=== PATIENT | female | born 1945 | race Caucasian/White ===

== ENCOUNTER 2018-05-07 06:03 | Day surgery (SDC) | payer MEDICARE ==
[~2018-05-07] VITALS: Ht 157.5 cm; Wt 109.4 kg
[~2018-05-07 06:03] MED LIST: CHOL10002; FISH OIL 1,2001 EAC1 PO; Omeprazole20 M1
--- NOTE | 2018-05-07 13:39 | NUR ---
05/07/18 1339 Laina Best (Priscilla DELAYED ENTRY 0935: PT STS SUDDEN ONSET NAUSEA & PAIN OF 11/09. 0944: 50MCG FENTANYL IVP ADMINISTERED PER ORDERS 0945: 4MG ZOFRAN IVP ADMINISTERED PER ORDERS PT STS PAIN RESOLVED; NAUSEA UNEFFECTED BY ZOFRAN 0952: PT VOMITED 75ML INTO EMESIS BAG. ORDER CLARIFIED WITH PHYSICIAN. 1002: 25MG PHENERGAN ADMINISTERED PER ORDERS 1012: PT 02 SATS DROPPED BELOW 92%, 2L 02 APPLIED. 1025: PT VSS, 02 DISCONTINUED.
== END 2018-05-07 11:25 | disposition home or self-care (01) ==
LOC: ORSCSDS 06:03
PROVIDERS: Podiatrist Foot & Ankle Surgery
PROC: 0LQW0ZZ Repair Left Foot Tendon, Open Approach (ICD-10-PCS; principal; 2018-05-07 07:30)
PROC: 0LXW0ZZ Transfer Left Foot Tendon, Open Approach (ICD-10-PCS; principal; 2018-05-07 07:30)
DX: M21.42 Flat foot [pes planus] (acquired), left foot (principal); M76.822 Posterior tibial tendinitis, left leg; I10 Essential (primary) hypertension; I48.91 Unspecified atrial fibrillation; Z87.891 Personal history of nicotine dependence; E66.01 Morbid (severe) obesity due to excess calories; Z68.41 Body mass index [BMI] 40.0-44.9, adult
CPT/HCPCS: C1713; J1100; J1885; J2405; J2550; J3010; J7120

== ENCOUNTER → 2018-11-19 | Outpatient (CLI) | payer MEDICARE ==
[2018-11-19 16:10] LABS: Hematocrit 44.3 % (33.0-51.0); Hemoglobin 14.6 g/dL (11.5-16.0); Mean Corpuscular Volume 91 fL (80-100); Platelet Count 248 K/mm3 (150-400); RDW Coefficient Variation 12.8 % (11.7-14.2); RDW Standard Deviation 42.3 fL (35.1-46.3); Red Blood Cell Count 4.86 M/mm3 (3.80-5.20); White Blood Cell Count 11.61 K/mm3 (4.00-11.30)
[2018-11-19 16:14] LABS: Anion Gap 12 mmol/L (6-16); Blood Urea Nitrogen 16 mg/dL (8-24); Bun/Creatinine Ratio 19.3 (12.0-20.0); CO2, Blood 24 mmol/L (21-32); Calcium, Blood 8.4 mg/dL (8.5-10.1); Chloride, Blood 104 mmol/L (98-108); Creatinine, Blood 0.83 mg/dL (0.40-1.00); Glomerular Filtration Rate >60 (60-); Glucose, Blood 148 mg/dL (70-99); Potassium, Blood 3.8 mmol/L (3.5-5.5); Sodium, Blood 140 mmol/L (136-145)
[2018-11-19 16:55] LABS: BAND PERCENT MAN 4 % (0-8); BASOPHILS PERCENT MAN 0 % (0-2); EOSINOPHILS PERCENT MAN 0 % (0-6); LYMPHOCYTES ABSOLUTE MAN 0.23 K/mm3 (0.84-5.20); LYMPHOCYTES PERCENT MAN 2 % (21-46); MONOCYTES ABSOLUTE MAN 0.23 K/mm3 (0.16-1.47); MONOCYTES PERCENT MAN 2 % (4-13); NEUTROPHILS ABSOLUTE MAN 11.14 K/mm3 (1.96-9.15); SEG NEUTROPHILS PERCENT MAN 92 % (41-73); TOTAL CELLS COUNTED 100
== END | disposition home or self-care (01) ==
LOC: LAB EV 16:05 → LAB SHORT 16:05
PROVIDERS: Physician Assistant Surgical
DX: R11.2 Nausea with vomiting, unspecified (principal)
CPT/HCPCS: 80048; 85025

== ENCOUNTER 2020-01-09 10:06 | Day surgery (SDC) | payer MEDICARE ==
[~2020-01-09] VITALS: Ht 157.5 cm; Wt 107.4 kg
[~2020-01-09 10:06] MED LIST changes: +ALBU90OI; +NAPR220
== END 2020-01-09 23:59 | disposition home or self-care (01) ==
LOC: ORSCSDS 10:06
PROVIDERS: Internal Medicine Gastroenterology
PROC: 0DB48ZX Excision of Esophagogastric Junction, Via Natural or Artificial Opening Endoscopic, Diagnostic (ICD-10-PCS; principal; 2020-01-09 11:30)
PROC: 0DB58ZX Excision of Esophagus, Via Natural or Artificial Opening Endoscopic, Diagnostic (ICD-10-PCS; principal; 2020-01-09 11:30)
PROC: 0D757ZZ Dilation of Esophagus, Via Natural or Artificial Opening (ICD-10-PCS; principal; 2020-01-09 11:30)
DX: R13.10 Dysphagia, unspecified (principal); K44.9 Diaphragmatic hernia without obstruction or gangrene; E66.01 Morbid (severe) obesity due to excess calories; Z68.41 Body mass index [BMI] 40.0-44.9, adult; Z87.891 Personal history of nicotine dependence; Z79.899 Other long term (current) drug therapy
CPT/HCPCS: 88305; J2704; J7120

== ENCOUNTER → 2020-04-11 | Outpatient (CLI) | payer MEDICARE | END | disposition home or self-care (01) | LOC: LAB SHORT 15:53 → PLD 15:53 | DX: D48.5 Neoplasm of uncertain behavior of skin (principal) | CPT/HCPCS: 88305 ==

== ENCOUNTER → 2020-10-17 | Outpatient (CLI) | payer MEDICARE | END | disposition home or self-care (01) | LOC: LAB 11:14 → LAB SHORT 11:14 | DX: D48.5 Neoplasm of uncertain behavior of skin (principal) | CPT/HCPCS: 88305 ==

== ENCOUNTER 2021-04-10 12:01 | Emergency (ER) | payer MEDICARE ==
[~2021-04-10] VITALS: Ht 157.5 cm; Wt 108.0 kg
[~2021-04-10 12:01] MED LIST changes: +Percocet 5-3251 EACH PO
[2021-04-10 12:36] LABS: Source, Urine Clean Catch
[2021-04-10 12:40] LABS: Appearance, Urine Clear (Clear); Bilirubin, Urine Neg (Neg); Blood, Urine 1+ (Neg); Color, Urine Yellow (P-Yellow); Glucose Qualitative, Urine Neg (Neg); Ketones, Urine 2+ (Neg); Leukocyte Esterase, Urine 2+ (Neg); Nitrite, Urine Neg (Neg); Protein, Urine 2+ (Neg); Specific Gravity, Urine 1.025 (1.003-1.022); Urobilinogen, Urine NORM (Normal)
[2021-04-10 12:50] LABS: Bacteria Many /hpf; Red Blood Cells, Urine 0-2 /hpf (0-2); Squamous Epithelial Cells Mod /hpf (Few); Transitional Epithelial Cells Rare /hpf (0-Rare)
[2021-04-10 12:51] LABS: Hyaline Casts 0-2 /lpf (0-2); Mucus Heavy (0-Heavy)
[2021-04-10] MEDS ORDERED: Kristalose20 GM PO (14:03)
[2021-04-10] MEDS ORDERED: Miralax17 GM PO (14:03)
== END 2021-04-10 14:13 | disposition home or self-care (01) ==
LOC: ER 12:01
PROVIDERS: Physician Assistant
DX: K59.00 Constipation, unspecified (principal); M54.50 Low back pain, unspecified; Z88.8 Allergy status to other drugs, medicaments and biological substances; Z88.0 Allergy status to penicillin; Z88.6 Allergy status to analgesic agent; Z88.1 Allergy status to other antibiotic agents; Z79.899 Other long term (current) drug therapy; I10 Essential (primary) hypertension; Z87.891 Personal history of nicotine dependence
CPT/HCPCS: 74018; 81001; 87086; 99283-25; A9270

== ENCOUNTER 2021-07-25 05:45 | Day surgery (SDC) | payer MEDICARE ==
[~2021-07-25] VITALS: Ht 157.5 cm; Wt 108.0 kg
[~2021-07-25 05:45] MED LIST changes: -CHOL10002; +Hydrochloroth12.5 MG PO; +Kristalose20 GM PO; +Miralax17 GM PO; +Triamcinolone A15 G3; +VITAMIN D3 MA125 MCG PO
--- NOTE | 2021-07-25 08:32 | NUR ---
PT RETURNED TO RECOVERY ROOM IN RECLINER. RIGHT RADIAL TR BAND SITE SOFT WTIH NO HEMATOMA AND NO PULSATILE BLEEDING WITH WRIST BOARD IN PLACE. PT DENIES CHEST PAIN. CALL LIGHT IN REACH. PT DRINKING COFFEE.
--- NOTE | 2021-07-25 10:31 | NUR ---
13 CC OF AIR REMOVED OVER 13 MIN OUT OF NOW DEFLATED R TR BAND; NO PULSATILE BLEEDING, NO HEMATOMA AND SOFT. DISCHARGE INSTRUCTIONS REVIEWED AND ALL QUESTIONS ANSWERED.
--- NOTE | 2021-07-25 10:42 | NUR ---
NO CHANGES TO DEFLATED R TR BAND SITE.
--- NOTE | 2021-07-25 11:11 | NUR ---
PT HAS HAD TWO EPISODES OF CHEST PAIN SHE HAS BEEN HAVING INTERMITTANTLY. NO CHANGES TO EKG ON MONITOR. DR GARCIA INFORMED.
--- NOTE | 2021-07-25 11:19 | NUR ---
DR GARCIA WILL SEE PT AROUND LUNCH TIME.
--- NOTE | 2021-07-25 11:46 | NUR ---
DR. GARCIA AT BEDSIDE TO DISCUSS RESULTS OF ANGIOGRAM, PT STATED THAT SHE IS HAVING CATARACT SURGERY AND NEEDS IN WRITING THAT SHE IS CLEAR TO HAVE THE PROCEDURE. [place]ON, SPECIALTIES OPERATOR INFORMED. ENCOURAGED TO FOLLOW UP WITH PCP.
--- NOTE | 2021-07-25 12:27 | NUR ---
DR GARCIA WAS IN RECOVERY ROOM TO SEE PT. DEFLATED R TR BAND REMOVED AND POLYMEM PLACED OVER RIGHT RADIAL SITE WITH WRIST BOARD IN PLACE; NO HEMATOMA, NO PULSATILE BLEEDING AND SOFT. PT AMULATED TO BR TO VOID. 20 G IV REMOVED FROM LEFT AC WITH INTACT CANNULA. PT ESCORTED OUT VIA WHEELCHAIR ESCORT.
== END 2021-07-25 12:30 | disposition home or self-care (01) ==
LOC: MHTC 05:45
DX: I25.110 Atherosclerotic heart disease of native coronary artery with unstable angina pectoris (principal); I10 Essential (primary) hypertension; J45.909 Unspecified asthma, uncomplicated; I48.91 Unspecified atrial fibrillation; E78.5 Hyperlipidemia, unspecified; Z88.8 Allergy status to other drugs, medicaments and biological substances; Z88.6 Allergy status to analgesic agent; Z88.0 Allergy status to penicillin; Z88.1 Allergy status to other antibiotic agents
CPT/HCPCS: 76937; 93454; 99152; 99153; C1769; C1887; C1894; J1644; J2250; J3010; J7030; J7040; Q9967

== ENCOUNTER 2021-12-26 06:48 | Day surgery (SDC) | payer MEDICARE ==
[~2021-12-26] VITALS: Ht 157.5 cm; Wt 110.3 kg
--- NOTE | 2021-12-26 07:20 | NUR ---
12/26/21 0720 Jyothi Denney AT 0706 P AT [phone]
== END 2021-12-26 08:35 | disposition home or self-care (01) ==
LOC: ORSCSDS 06:48
PROVIDERS: Ophthalmology
PROC: 08DJ3ZZ Extraction of Right Lens, Percutaneous Approach (ICD-10-PCS; principal; 2021-12-26 08:00)
DX: H25.11 Age-related nuclear cataract, right eye (principal); J45.909 Unspecified asthma, uncomplicated; I48.91 Unspecified atrial fibrillation; E78.5 Hyperlipidemia, unspecified; E55.9 Vitamin D deficiency, unspecified; I10 Essential (primary) hypertension; R06.02 Shortness of breath; E66.01 Morbid (severe) obesity due to excess calories; Z68.41 Body mass index [BMI] 40.0-44.9, adult; Z79.899 Other long term (current) drug therapy
CPT/HCPCS: J2001; J2250; J3010; J3301; J7040; V2632

== ENCOUNTER 2022-01-02 06:37 | Day surgery (SDC) | payer MEDICARE ==
[~2022-01-02] VITALS: Ht 160 cm; Wt 110.5 kg
== END 2022-01-02 08:36 | disposition home or self-care (01) ==
LOC: ORSCSDS 06:37
PROVIDERS: Ophthalmology
PROC: 08DK3ZZ Extraction of Left Lens, Percutaneous Approach (ICD-10-PCS; principal; 2022-01-02 08:00)
DX: H25.12 Age-related nuclear cataract, left eye (principal); R06.02 Shortness of breath; I10 Essential (primary) hypertension; E78.5 Hyperlipidemia, unspecified; J45.909 Unspecified asthma, uncomplicated; E66.01 Morbid (severe) obesity due to excess calories; Z68.41 Body mass index [BMI] 40.0-44.9, adult; Z87.891 Personal history of nicotine dependence; Z79.82 Long term (current) use of aspirin; Z79.899 Other long term (current) drug therapy
CPT/HCPCS: J2001; J2250; J3010; J3301; J7040; J7120; V2632

== ENCOUNTER 2024-06-01 09:41 | Emergency (ER) | payer MEDICARE ==
[~2024-06-01] VITALS: Ht 167.6 cm; Wt 106.6 kg
[2024-06-01] MEDS ORDERED: Ondansetron HCl 2 MG / ML 2ML Vial IV ONE (10:35)
[2024-06-01 10:48] LABS: Calcium, Ionized (POC) 1.19 mmol/L (1.10-1.46); Chloride (POC) 104 mmol/L (98-108); Creatinine (POC) 0.7 mg/dL (0.6-1.0); Glucose (ISTAT POC) 105 mg/dL (70-99); Hemoglobin (POC) 15.3 g/dL (12.0-16.0); Potassium (POC) 3.9 mmol/L (3.5-5.5); Sodium (POC) 141 mmol/L (135-148); Total CO2 (POC) 28 mmol/L (21-32)
[2024-06-01 11:08] LABS: BASOPHILS ABSOLUTE AUTO 0.04 K/mm3 (0.00-0.23); BASOPHILS PERCENT AUTO 1 % (0-2); EOSINOPHILS ABSOLUTE AUTO 0.09 K/mm3 (0.00-0.68); EOSINOPHILS PERCENT AUTO 1 % (0-6); Hemoglobin 14.8 g/dL (11.5-16.0); IMMATURE GRAN ABSOLUTE AUTO 0.06 K/mm3 (0.00-0.10); IMMATURE GRAN PERCENT AUTO 1 % (0-1); LYMPHOCYTES PERCENT AUTO 20 % (21-46); MONOCYTES ABSOLUTE AUTO 0.42 K/mm3 (0.16-1.47); MONOCYTES PERCENT AUTO 6 % (4-13); Mean Corpuscular HGB 30.2 pg (26.0-34.0); Mean Corpuscular HGB Conc 33.6 g/dL (31.5-36.5); Mean Corpuscular Volume 90 fL (80-100); Mean Platelet Volume 9.3 fL (9.1-12.4); NEUTROPHILS ABSOLUTE AUTO 5.33 K/mm3 (1.96-9.15); NEUTROPHILS PERCENT AUTO 72 % (41-73); Platelet Count 264 K/mm3 (150-400); RDW Coefficient Variation 12.8 % (11.7-14.2); RDW Standard Deviation 42.1 fL (35.1-46.3); White Blood Cell Count 7.44 K/mm3 (4.00-11.30)
[2024-06-01 11:22] LABS: D-Dimer, Quantitative 0.92 mg/L FEU (0.00-0.52); International Normalized Ratio 0.91; Prothrombin Time Results 9.8 Sec (9.7-11.5)
[2024-06-01 11:25] LABS: Albumin, Blood 3.5 g/dL (3.4-5.0); Albumin/Globulin Ratio 0.9 (0.8-1.8); Bilirubin, Total 0.5 mg/dL (0.1-1.0); Bun/Creatinine Ratio 18.2 (12.0-20.0); Calcium, Blood 8.8 mg/dL (8.5-10.1); Creatinine, Blood 0.66 mg/dL (0.40-1.00); Globulin, Blood 3.7 g/dL (2.2-4.0); Potassium, Blood 3.9 mmol/L (3.5-5.5); Total Protein, Blood 7.2 g/dL (6.4-8.2)
[2024-06-01] MEDS ORDERED: Dexamethasone Sod Phos 10 MG/ML 1ML VIAL IV ONE (11:50)
[2024-06-01] MEDS ORDERED: Acetaminophen 500 MG Tab PO ONE (11:50)
[2024-06-01] MEDS ORDERED: NS 1,000 ML IV SCH (11:50)
[2024-06-01] MEDS ORDERED: DiphenhydrAMINE HCl 50 MG/ML 1ML Vial IV ONE (11:50)
[2024-06-01] MEDS ORDERED: Prochlorperazine Edisylate 10 mg Vial IV ONE (11:50)
[2024-06-01 14:44] VITALS: BP 187/84
[2024-06-02] MEDS ORDERED: ACET500 PO (11:10)
[2024-06-02] MEDS ORDERED: ONDA4 PO (11:10)
== END 2024-06-01 14:44 | disposition home or self-care (01) ==
LOC: ER 09:41
PROVIDERS: Physician Assistant; Student in an Organized Health Care Education/Training Program
DX: R51.9 Headache, unspecified (principal); H53.8 Other visual disturbances; R07.9 Chest pain, unspecified; I10 Essential (primary) hypertension; Z87.891 Personal history of nicotine dependence; Z88.8 Allergy status to other drugs, medicaments and biological substances; Z88.0 Allergy status to penicillin; Z88.6 Allergy status to analgesic agent; Z88.5 Allergy status to narcotic agent; Z79.1 Long term (current) use of non-steroidal anti-inflammatories (NSAID); Z79.899 Other long term (current) drug therapy
CPT/HCPCS: 70450; 70496; 70498; 71046; 80047; 80053; 84484; 85014; 85025; 85379; 85610; 85730; 93005; 93010; 93246; 96361; 96374-59; 96375-59; 99284-25; A9270; J0780; J1100; J1200; J2405; J7030; Q9967

== ENCOUNTER 2024-06-02 07:08 | Emergency (ER) | payer MEDICARE ==
[~2024-06-02] VITALS: Ht 160 cm; Wt 104.3 kg
[2024-06-02] MEDS ORDERED: NS 1,000 ML IV SCH (07:40)
[2024-06-02] MEDS ORDERED: Acetaminophen 500 MG Tab PO ONE (07:40)
[2024-06-02] MEDS ORDERED: Metoclopramide HCl 5MG / ML 2ML Vial IV ONE (07:40)
[2024-06-02] MEDS ORDERED: DiphenhydrAMINE HCl 50 MG/ML 1ML Vial IV ONE (07:40)
[2024-06-02 08:14] LABS: BASOPHILS ABSOLUTE AUTO 0.03 K/mm3 (0.00-0.23); BASOPHILS PERCENT AUTO 0 % (0-2); EOSINOPHILS PERCENT AUTO 0 % (0-6); Hematocrit 41.9 % (33.0-51.0); Hemoglobin 14.2 g/dL (11.5-16.0); IMMATURE GRAN ABSOLUTE AUTO 0.08 K/mm3 (0.00-0.10); IMMATURE GRAN PERCENT AUTO 1 % (0-1); LYMPHOCYTES ABSOLUTE AUTO 0.95 K/mm3 (0.84-5.20); LYMPHOCYTES PERCENT AUTO 7 % (21-46); MONOCYTES ABSOLUTE AUTO 0.45 K/mm3 (0.16-1.47); MONOCYTES PERCENT AUTO 3 % (4-13); Mean Corpuscular HGB 30.2 pg (26.0-34.0); Mean Corpuscular HGB Conc 33.9 g/dL (31.5-36.5); Mean Corpuscular Volume 89 fL (80-100); NEUTROPHILS ABSOLUTE AUTO 11.74 K/mm3 (1.96-9.15); NEUTROPHILS PERCENT AUTO 89 % (41-73); Platelet Count 284 K/mm3 (150-400); RDW Coefficient Variation 12.6 % (11.7-14.2); RDW Standard Deviation 41.2 fL (35.1-46.3); White Blood Cell Count 13.25 K/mm3 (4.00-11.30)
[2024-06-02 08:22] LABS: Bun/Creatinine Ratio 19.6 (12.0-20.0); Calcium, Blood 8.8 mg/dL (8.5-10.1); Creatinine, Blood 0.56 mg/dL (0.40-1.00); Magnesium, Blood 2.1 mg/dL (1.6-2.4); Potassium, Blood 3.7 mmol/L (3.5-5.5)
[2024-06-02] MEDS ORDERED: Mag Sulfate 1 GM/D5% 100ML 100 ML IV ONE (10:15)
[2024-06-02] MEDS ORDERED: ACET500 PO (11:10)
[2024-06-02] MEDS ORDERED: ONDA4 PO (11:10)
[2024-06-02 11:53] VITALS: BP 128/61
== END 2024-06-02 12:00 | disposition home or self-care (01) ==
LOC: ER 07:08
PROVIDERS: Emergency Medicine
DX: G43.809 Other migraine, not intractable, without status migrainosus (principal); I10 Essential (primary) hypertension; Z87.891 Personal history of nicotine dependence; Z79.899 Other long term (current) drug therapy; Z79.1 Long term (current) use of non-steroidal anti-inflammatories (NSAID); Z88.0 Allergy status to penicillin; Z88.1 Allergy status to other antibiotic agents; Z88.8 Allergy status to other drugs, medicaments and biological substances
CPT/HCPCS: 70551; 71045; 71260; 80048; 83735; 83880; 84484; 85025; 85379; 93005; 93010; 96361; 96365-59; 96375-59; 99284-25; A9270; J1200; J2765; J3475; J7030; Q9967

== ENCOUNTER 2024-09-24 07:09 | Emergency (ER) | payer MEDICARE ==
[~2024-09-24] VITALS: Ht 160 cm; Wt 108.0 kg
[~2024-09-24 07:09] MED LIST changes: +ACET500 PO; +ONDA4 PO
[2024-09-24 08:13] VITALS: BP 179/71
[2024-09-24] MEDS ORDERED: [UNRECOGNIZED DRUG - CODE] SS (08:30)
== END 2024-09-24 08:45 | disposition home or self-care (01) ==
LOC: ER 07:09
DX: B37.0 Candidal stomatitis (principal); I10 Essential (primary) hypertension; Z88.0 Allergy status to penicillin; Z88.8 Allergy status to other drugs, medicaments and biological substances; Z87.891 Personal history of nicotine dependence
CPT/HCPCS: 99282

== ENCOUNTER 2024-09-30 08:25 | Emergency (ER) | payer MEDICARE ==
[~2024-09-30] VITALS: Ht 172.7 cm; Wt 102.1 kg
[~2024-09-30 08:25] MED LIST changes: +[UNRECOGNIZED DRUG - CODE] SS
[2024-09-30 08:55] LABS: BASOPHILS ABSOLUTE AUTO 0.02 K/mm3 (0.00-0.23); BASOPHILS PERCENT AUTO 0 % (0-2); EOSINOPHILS ABSOLUTE AUTO 0.07 K/mm3 (0.00-0.68); EOSINOPHILS PERCENT AUTO 1 % (0-6); Hematocrit 45.1 % (33.0-51.0); Hemoglobin 14.7 g/dL (11.5-16.0); IMMATURE GRAN ABSOLUTE AUTO 0.02 K/mm3 (0.00-0.10); IMMATURE GRAN PERCENT AUTO 0 % (0-1); LYMPHOCYTES ABSOLUTE AUTO 1.36 K/mm3 (0.84-5.20); LYMPHOCYTES PERCENT AUTO 17 % (21-46); MONOCYTES ABSOLUTE AUTO 0.33 K/mm3 (0.16-1.47); MONOCYTES PERCENT AUTO 4 % (4-13); Mean Corpuscular HGB Conc 32.6 g/dL (31.5-36.5); Mean Corpuscular Volume 91 fL (80-100); NEUTROPHILS ABSOLUTE AUTO 6.24 K/mm3 (1.96-9.15); NEUTROPHILS PERCENT AUTO 78 % (41-73); NRBC ABSOLUTE 0.00 K/mm3 (0.00-0.02); NRBC Auto 0.0 /100 WBC (0.0-0.2); Platelet Count 262 K/mm3 (150-400); RDW Coefficient Variation 12.6 % (11.7-14.2); RDW Standard Deviation 41.6 fL (35.1-46.3)
[2024-09-30] MEDS ORDERED: Ketorolac Tromethamine 15mg Vial IV ONE (09:05)
[2024-09-30] MEDS ORDERED: Ondansetron HCl 2 MG / ML 2ML Vial IV ONE (09:05)
[2024-09-30 09:18] LABS: Alanine Aminotransfer (ALT/SGP 28.0 U/L (12-78); Albumin, Blood 3.5 g/dL (3.4-5.0); Albumin/Globulin Ratio 0.8 (0.8-1.8); Anion Gap 9.0 mmol/L (3-11); Aspartate Aminotrans (AST/SGOT 22.0 U/L (12-37); Bilirubin, Total 0.4 mg/dL (0.1-1.0); Blood Urea Nitrogen 15.0 mg/dL (8-24); CO2, Blood 24.0 mmol/L (21-32); Calcium, Blood 9.0 mg/dL (8.5-10.1); Chloride, Blood 111.0 mmol/L (98-108); Creatinine, Blood 0.76 mg/dL (0.40-1.00); Globulin, Blood 4.2 g/dL (2.2-4.0); Glucose, Blood 153.0 mg/dL (70-99); Potassium, Blood 3.5 mmol/L (3.5-5.5); Sodium, Blood 140.0 mmol/L (136-145); Total Protein, Blood 7.7 g/dL (6.4-8.2)
[2024-09-30 10:55] LABS: Source, Urine Clean Catch
[2024-09-30 10:58] LABS: Bilirubin, Urine Neg (Neg); Color, Urine Yellow (P-Yellow); Glucose Qualitative, Urine Neg (Neg); Ketones, Urine Neg (Neg); Leukocyte Esterase, Urine Neg (Neg); Protein, Urine 1+ (Neg); Specific Gravity, Urine 1.010 (1.003-1.022); Urobilinogen, Urine NORM (Normal)
[2024-09-30 13:00] VITALS: BP 158/78
[2024-09-30] MEDS ORDERED: NYSTATIN-TRIAMC15 GM TOP (13:26)
== END 2024-09-30 13:26 | disposition home or self-care (01) ==
LOC: ER 08:25
PROVIDERS: Physician Assistant
DX: K59.00 Constipation, unspecified (principal); K64.4 Residual hemorrhoidal skin tags; I10 Essential (primary) hypertension; Z87.891 Personal history of nicotine dependence; Z88.0 Allergy status to penicillin; Z88.8 Allergy status to other drugs, medicaments and biological substances; Z88.1 Allergy status to other antibiotic agents; Z79.899 Other long term (current) drug therapy; Z79.2 Long term (current) use of antibiotics
CPT/HCPCS: 72193; 80053; 85025; 96374-59; 96375-59; 99284-25; J1885; J2405; Q9967